=== PATIENT | female | born 2000 | race Caucasian/White ===

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

== ENCOUNTER → 2022-03-07 | Outpatient (REF) | payer OTHER ==
[~2022-03-07] MED LIST changes: -DOXY-342 PO; +DOXY100C81 PO
== END ==
LOC: M LAB REF 16:01
PROVIDERS: ATTEND Obstetrics & Gynecology
DX: Z34.03 Encounter for supervision of normal first pregnancy, third trimester (principal)

== ENCOUNTER 2022-04-04 05:41 | Outpatient (CLI) | payer OTHER ==
[~2022-04-04] VITALS: Ht 154.9 cm; Wt 74.2 kg
[2022-04-04 05:58] VITALS: BP 123/68
[2022-04-04] MEDS ORDERED: PREN1MIS PO (18:24)
== END 2022-04-04 06:15 | disposition home or self-care (01) ==
LOC: M LDO 05:41
PROVIDERS: ATTEND Obstetrics & Gynecology
DX: O60.03 Preterm labor without delivery, third trimester (principal); Z3A.40 40 weeks gestation of pregnancy

== ENCOUNTER 2023-07-13 02:51 | Emergency (ER) | payer OTHER ==
[~2023-07-13] VITALS: Ht 152.4 cm; Wt 56.7 kg
[~2023-07-13 02:51] MED LIST changes: +AMOX875T2 PO; +BUPR-597 PO; +CEFD1CAP9 PO; -CEFD300C41 PO; -DOXY100C81 PO; +DOXY100C82 PO; +PREN1MIS PO
[2023-07-13 02:52] VITALS: BP 111/73; TEMP 100; O2SAT 96
[2023-07-13] MEDS ORDERED: CEPH500C PO (05:26)
[2023-07-13] MEDS: CEPHALEXIN 500 MG CAP PO ONE (05:29)
[2023-07-13] MEDS ORDERED: MAGICMW SSP (05:41)
[2023-07-13] MEDS: MAGIC MOUTHWASH *ED ONLY* 5ML ORAL SYRINGE SSP ONE (06:07)
== END 2023-07-13 06:15 | disposition home or self-care (01) ==
LOC: M ED 02:51
DX: J02.9 Acute pharyngitis, unspecified (principal); F32.A Depression, unspecified; F41.9 Anxiety disorder, unspecified; Z79.1 Long term (current) use of non-steroidal anti-inflammatories (NSAID); Z79.2 Long term (current) use of antibiotics; Z79.810 Long term (current) use of selective estrogen receptor modulators (SERMs); Z79.899 Other long term (current) drug therapy

== ENCOUNTER → 2024-02-14 | Outpatient (REF) | payer OTHER, MEDICAID ==
[~2024-02-14] MED LIST changes: +CEPH500C PO; +MAGICMW SSP
[2024-02-14 15:05] LABS: Trichomonas vaginalis (AMP) NOT DETECTED (NEGATIVE)
[2024-02-14 15:29] LABS: GC DNA AMPLIFICATION NEGATIVE (NEGATIVE)
[2024-02-14 17:35] LABS: ALBUMIN 4.2 G/DL (3.2-5.2); ALKALINE PHOSPHATASE 73 U/L (35-104); ALT/SGPT 19 U/L (7.0-40); AST/SGOT 11 U/L (<34); BILIRUBIN,TOTAL 0.6 MG/DL (0.3-1.2); BLOOD UREA NITROGEN 11 MG/DL (9-23); CALCIUM LEVEL 9.7 MG/DL (8.5-10.1); CARBON DIOXIDE LEVEL 26 MMOL/L (20-31); CHLORIDE LEVEL 107 MMOL/L (98-107); CREATININE FOR GFR 0.55 MG/DL (0.55-1.30); GLOMERULAR FILTRATION RATE > 60.0 (>60); GLUCOSE, FASTING 92 MG/DL (60-100); SODIUM LEVEL 140 MMOL/L (136-145); TOTAL PROTEIN 7.4 G/DL (5.7-8.2)
[2024-02-14 17:36] LABS: TOTAL 25(OH) VITAMIN D 7.4 NG/ML (20.0-100.0)
[2024-02-14 17:37] LABS: THYROID STIMULATING HORMONE 1.919 uIU/ML (0.55-4.78)
== END ==
LOC: M LAB REF 12:18
PROVIDERS: ATTEND Physician Assistant
DX: Z11.9 Encounter for screening for infectious and parasitic diseases, unspecified (principal); Z13.29 Encounter for screening for other suspected endocrine disorder; M54.50 Low back pain, unspecified; E55.9 Vitamin D deficiency, unspecified